=== PATIENT | male | born 1955 | race Caucasian/White ===

== ENCOUNTER 2017-03-02 14:39 | Emergency (ER) | payer SELFPAY ==
[~2017-03-02] VITALS: Ht 182.9 cm; Wt 90.0 kg
[2017-03-02 15:46] LABS: BLOOD UREA NITROGEN 11 mg/dL (7-18)
[2017-03-02 15:49] LABS: ASPARTATE AMINO TRANSFERASE 15 U/L (15-37)
[2017-03-02] MEDS ORDERED: GADOBUTROL 10 MMOL/10 ML PFS ONE (17:56)
[2017-03-02 18:14] VITALS: BP 151/92
== END 2017-03-02 18:18 | disposition home or self-care (01) ==
LOC: ED 15:43 → SUATTDRO 15:57 → ED 18:18
PROVIDERS: ATTEND Family Medicine
DX: G51.0 Bell's palsy (principal)
CPT/HCPCS: 36415; 70553; 71010; 80053; 85025; 85610; 85730; 93005; 99285; A9585

== ENCOUNTER 2021-01-28 10:40 | Outpatient (CLI) | payer MEDICARE ==
[2021-01-28 12:05] LABS: BASOPHILS % (AUTO) 1 % (0-1); EOSINOPHILS % (AUTO) 1 % (1-7); LYMPHOCYTES % (AUTO) 13 % (22-44); MEAN CORPUSCULAR HGB CONC 33.7 g/dL (33.2-36.2); MEAN PLATELET VOLUME 8.2 fL (7.4-10.4); MONOCYTES % (AUTO) 7 % (2-9); NEUTROPHILS % (AUTO) 78 % (42-75); PLATELET COUNT 191 x10^3/uL (130-400); RED BLOOD COUNT 4.44 x10^6/uL (4.38-5.82); RED CELL DISTRIBUTION WIDTH 13.4 % (9.4-14.8)
[2021-01-28 12:06] LABS: MD NO
[2021-01-28 12:14] LABS: INTERNATIONAL NORMALIZED RATIO 0.97 (0.93-1.1); PROTHROMBIN TIME 10.4 Seconds (9.6-11.5)
[2021-01-28 12:15] LABS: ANION GAP 3 mmol/L (5-15); CALCIUM 8.8 mg/dL (8.5-10.1); CHLORIDE 110 mmol/L (98-107); CREATININE 0.93 mg/dL (0.7-1.3)
[2021-01-28 12:16] LABS: ALANINE AMINOTRANSFERASE 22 U/L (12-78); ALBUMIN 3.6 g/dL (3.4-5.0)
[2021-01-28 12:18] LABS: ALKALINE PHOSPHATASE 74 U/L (45-117); BILIRUBIN,TOTAL 0.8 mg/dL (0.2-1.0)
[2021-01-28] MEDS ORDERED: HYDR-3241 PO (13:26)
[2021-01-28] MEDS ORDERED: Kratom PO (13:26)
[2021-01-28] MEDS ORDERED: PROT1PAC2 PO (13:26)
[2021-01-28] MEDS ORDERED: [UNRECOGNIZED DRUG - OTHER] PO (13:26)
[2021-01-28] MEDS ORDERED: DICL100G19 TP (13:26)
[2021-01-28] MEDS ORDERED: IBUP-1623 PO (13:26)
[2021-01-28] MEDS ORDERED: [UNRECOGNIZED DRUG - OTHER] PO (13:26)
[2021-01-28] MEDS ORDERED: MULT1CAP PO (13:26)
== END 2021-01-28 23:59 | disposition home or self-care (01) ==
LOC: STAR 10:40
PROVIDERS: ATTEND Orthopaedic Surgery
DX: Z01.812 Encounter for preprocedural laboratory examination (principal); Z20.822 Contact with and (suspected) exposure to COVID-19; Z01.818 Encounter for other preprocedural examination; M16.12 Unilateral primary osteoarthritis, left hip; I44.0 Atrioventricular block, first degree; Z79.01 Long term (current) use of anticoagulants
CPT/HCPCS: 36415; 80053; 83036; 85025; 85610; 85730; 87081; 93005; U0003

== ENCOUNTER 2021-02-03 08:29 | Day surgery (SDC) | payer MEDICARE ==
[~2021-02-03] VITALS: Ht 180.3 cm; Wt 74.2 kg
[~2021-02-03 08:29] MED LIST: ACETAMINOPHEN 650 MG/20.3 ML UDC PO PRN; BISACODYL 10 MG SUPP PR PRN; CEFAZOLIN PMX 2GM/50ML 50 ML IVPB SCH; DICL100G19 TP; DIPHENHYDRAMINE 25 MG CAPSULE PO PRN; EPINEPHRINE 1 MG/ML, 1ML ONE; HYDR-3241 PO; HYDROcodone/APAP 5/325 TABLET PO PRN; IBUP-1623 PO; KETOROLAC 60 MG/2 ML ONE; Kratom PO; MAGNESIUM HYDROXIDE 8%, 30ML UDC PO PRN; MULT1CAP PO; NS + 20MEQ KCL 1,000 ML IV SCH; ONDANSETRON 2MG/ML, 2ML IV PRN; ONDANSETRON 4 MG TABLET PO PRN; OXYcodone IR 5MG TABLET PO PRN; PROT1PAC2 PO; ROPIvacaine/PF 0.5%, 20 ML ONE; ROPIvacaine/PF 0.5%, 30 ML ONE; SENNA/DOCUSATE TABLET PO PRN; SODIUM CHLORIDE 0.9% 50 ML ONE; TRANEXAMIC ACID 100 MG/ML, 10ML ONE; VANCOMYCIN 1,000 MG ONE; ZOLPIDEM 5MG TABLET PO PRN; [UNRECOGNIZED DRUG - OTHER] PO; [UNRECOGNIZED DRUG - OTHER] PO
[2021-02-03] MEDS ORDERED: GABAPENTIN 300 MG CAPSULE PO ONE (09:00)
[2021-02-03] MEDS ORDERED: ACETAMINOPHEN 500 MG TABLET PO ONE (09:00)
[2021-02-03] MEDS ORDERED: DOCUSATE 100 MG CAPSULE PO SCH (09:00)
[2021-02-03 09:02] VITALS: BP 149/80
[2021-02-03] MEDS ORDERED: CHLORHEXIDINE 15 ML UDC ONE (09:15)
[2021-02-03] MEDS ORDERED: LACTATED RINGERS 1,000 ML IV SCH (09:30)
[2021-02-03] MEDS ORDERED: CHLORHEXIDINE 15 ML UDC PO ONE (09:30)
[2021-02-03] MEDS ORDERED: FENTANYL PF 250 MCG/5ML ONE (10:05)
[2021-02-03] MEDS ORDERED: MIDAZOLAM 1 MG/ML, 2ML ONE (10:05)
[2021-02-03] MEDS ORDERED: GLYCOPYRROLATE 0.2MG/1ML, 5ML ONE (11:29)
[2021-02-03] MEDS ORDERED: ONDANSETRON 2MG/ML, 2ML ONE (11:29)
[2021-02-03] MEDS ORDERED: CEFAZOLIN 1,000 MG ONE (11:29)
[2021-02-03] MEDS ORDERED: PROPOFOL 10 MG/ML, 20ML ONE (11:29)
[2021-02-03] MEDS ORDERED: DEXAMETHASONE 4 MG/ML, 1ML ONE (11:29)
[2021-02-03] MEDS ORDERED: ROCURONIUM 10MG/ML,5ML ONE (11:29)
[2021-02-03] MEDS ORDERED: NEOSTIGMINE 1 MG/ML, 10ML ONE (11:29)
[2021-02-03] MEDS ORDERED: MEPERIDINE/PF 25MG/0.5ML IVPush PRN (11:30)
[2021-02-03] MEDS ORDERED: ALBUTEROL SULFATE 2.5 MG/3 ML NPPB PRN (11:30)
[2021-02-03] MEDS ORDERED: PROMETHAZINE 25 MG/ML, 1ML IVPush PRN (11:30)
[2021-02-03] MEDS ORDERED: OXYcodone 5 MG/5 ML ORAL.SOL UDC PO PRN (11:30)
[2021-02-03] MEDS ORDERED: LABETALOL 5MG/ML, 20ML IV PRN (11:30)
[2021-02-03] MEDS ORDERED: LORazepam 2 MG/ML, 1ML IVPush PRN (11:30)
[2021-02-03] MEDS ORDERED: ACETAMINOPHEN 325 MG TABLET PO PRN (11:30)
[2021-02-03] MEDS ORDERED: FENTANYL PF 100 MCG/2ML ONE ×2 (12:02→12:25)
[2021-02-03] MEDS: FENTANYL PF 100 MCG/2ML IV PRN ×4 (12:04→12:41)
[2021-02-03] MEDS ORDERED: OXYcodone 5 MG/5 ML ORAL.SOL UDC ONE (12:09)
[2021-02-03] MEDS ORDERED: METHOCARBAMOL 1,000 MG in DEXTROSE 5% 100 ML IV PRN (12:09)
[2021-02-03] MEDS ORDERED: MEPERIDINE/PF 25MG/ML,1ML ONE (12:10)
[2021-02-03] MEDS ORDERED: HYDROmorphone 1 MG/ML, 1ML INJ ONE (12:52)
[2021-02-03] MEDS: HYDROmorphone 1 MG/ML, 1ML INJ IVPush PRN ×3 (12:55→13:06)
[2021-02-03] MEDS ORDERED: ASPIRIN 81 MG TABLET EC PO SCH (18:00)
[2021-02-04] MEDS ORDERED: DEXAMETHASONE 4 MG/ML, 1ML IVPush SCH (06:00)
== END 2021-02-03 18:00 | disposition home or self-care (01) ==
LOC: OUT 08:29
PROVIDERS: ATTEND Orthopaedic Surgery
DX: M16.0 Bilateral primary osteoarthritis of hip (principal); M25.752 Osteophyte, left hip; M21.852 Other specified acquired deformities of left thigh; M21.851 Other specified acquired deformities of right thigh; Z79.1 Long term (current) use of non-steroidal anti-inflammatories (NSAID); Z79.891 Long term (current) use of opiate analgesic; Z79.899 Other long term (current) drug therapy; Z85.828 Personal history of other malignant neoplasm of skin
CPT/HCPCS: 27130; 72170; 73501; 97161; 97165; C1713; C1776; J0171; J0690; J1100; J1170; J1885; J2175; J2250; J2405; J2704; J2710; J2795; J2800; J3010; J3370; J7120; 76000